=== PATIENT | male | born 1970 | race Two or more races ===

== ENCOUNTER 2022-12-31 13:32 | Emergency (ER) | payer OTHER ==
[2022-12-31] MEDS ORDERED: Famotidine 20 MG/2 ML SDV IVPUSH ONE (13:42)
[2022-12-31] MEDS ORDERED: Sodium Chloride 0.9% 2.5 ML Syringe FLUSH PRN (13:42)
[2022-12-31] MEDS ORDERED: Albuterol/Ipratropium 3.0-0.5 MG/3 ML Neb Soln NEB ONE (13:42)
[2022-12-31] MEDS ORDERED: Sodium Chloride 0.9% 10 ML Syringe FLUSH PRN (13:42)
[2022-12-31 14:28] LABS: BASOPHILS ABSOLUTE AUTO 0.1 K/uL (0.0-0.1); BASOPHILS PERCENT AUTO 0.9 % (0.0-1.5); EOSINOPHILS ABSOLUTE AUTO 0.4 K/uL (0.0-0.7); EOSINOPHILS PERCENT AUTO 7.3 % (0.0-7.0); HEMATOCRIT 42.2 % (38.0-50.0); HEMOGLOBIN 14.1 g/dL (13.0-17.0); LYMPHOCYTES ABSOLUTE AUTO 1.8 K/uL (0.6-2.4); LYMPHOCYTES PERCENT AUTO 31.9 % (16.0-40.0); MEAN CORPUSCULAR HEMOGLOBIN 31.1 pg (27.0-32.0); MEAN CORPUSCULAR HGB CONC 33.4 g/dL (31.0-37.0); MONOCYTES ABSOLUTE AUTO 0.2 K/uL (0.0-0.8); NEUTROPHILS ABSOLUTE AUTO 3.1 K/uL (1.4-5.7); NEUTROPHILS PERCENT AUTO 55.9 % (48.0-80.0); NRBC ABSOLUTE 0 K/uL; PLATELET COUNT,PLT 297 K/uL (150-400); RED BLOOD CELL COUNT 4.54 M/uL (4.50-5.90); WHITE BLOOD CELL COUNT,WBC 5.49 K/uL (4.0-11.0)
[2022-12-31 14:54] LABS: A/G RATIO 1.2 (0.9-1.6); ALBUMIN 3.9 g/dL (3.4-5.0); BILIRUBIN TOTAL 0.4 mg/dL (0.2-1.0); CALCIUM 8.4 mg/dL (8.5-10.1); CREATININE 1.2 mg/dL (0.8-1.3); EST CRCL DRUG DOSING (CG) 76.04 mL/min; POTASSIUM,K 3.2 mmol/L (3.5-5.1); PROTEIN TOTAL,TP 7.2 g/dL (6.4-8.2)
== END 2022-12-31 16:21 | disposition home or self-care (01) ==
LOC: MW.ED 13:32
DX: J44.9 Chronic obstructive pulmonary disease, unspecified (principal)
CPT/HCPCS: 36415; 71046; 80053; 83690; 83880; 84484; 85025; 85379; 93005; 96374; 99285; J3490; 93010; 99284; J7620-GY